=== PATIENT | female | born 1955 | race Caucasian/White ===

== ENCOUNTER 2018-12-07 10:15 | Inpatient (IN) ==
[2018-12-07] MEDS ORDERED: guaiFENesin/DM ER 600-30 MG TABLET PO PRN (13:18)
[2018-12-07 13:45] LABS: Basophils % 0.5 % (0.0-0.8); Eosinophils # 0.2 10*3/uL (0.0-0.87); Eosinophils % 2.4 % (0.00-10.9); Hematocrit 37.2 VOL% (35.7-47.0); Hemoglobin 11.7 GM/DL (12.0-16.0); Immature Granulocytes % 0.5 %; Immature Granulocytes Absolute 0.04 #; Lymphocytes # 2.5 10*3/uL (1.4-4.0); Lymphocytes % 28.2 % (21.3-54.2); Mean Corpuscular HGB Conc 31.5 GM/DL (32-36); Mean Corpuscular Volume 95.4 FL (87-102); Mean Platelet Volume 9.9 FL (9.6-12.0); Monocytes % 8.4 % (1.7-12.7); Platelet Count 365 T/CUMM (130-400); Red Cell Distribution Width 13.7 % (9.3-17.3); White Blood Count 8.7 T/CUMM (4-12)
[2018-12-07 14:13] LABS: Thyroid Stimulating Hormone 2.25 uIU/ml (0.358-3.74)
[2018-12-07] MEDS: ALBUTEROL/IPRATROPIUM 3 ML NEB RESP TX SCH ×3 (14:32→22:40)
[2018-12-07] MEDS: ENOXAPARIN 40 MG/0.4 ML SYRINGE SUBCUT SCH (15:39)
[2018-12-07] MEDS: methylPREDNISolone SOD SUC 40 MG/1 ML VIAL IV SCH ×2 (15:39→21:09)
[2018-12-07] MEDS: cefTRIAXone 1,000 MG in SYRINGE 1 EACH IV SCH (15:40)
[2018-12-07] MEDS: ACETAMINOPHEN 325 MG TABLET PO PRN (18:35)
[2018-12-07 19:59] LABS: Apearance,Urine CLEAR (Clear); Bilirubin,Urine Negative (Negative); Blood, Urine Negative (Negative); Glucose,Urine (UA) Negative (Negative); Ketones,Urine Negative (Negative); Mucus,Urine Occasional /LPF (Occasional); Nitrite,Urine Negative (Negative); Protein,Urine Negative; RBC,Urine 2 /HPF (0-4); Urine Color Yellow (Yellow); Urine Specific Gravity 1.013 (1.001-1.035); Urine Urobilinogen < 2.0 EU/DL (0.2-1.0); WBC,Urine 1 /HPF (0-6)
[2018-12-08] MEDS ORDERED: BENZONATATE 100 MG CAPSULE PO PRN (00:29)
[2018-12-08] MEDS: methylPREDNISolone SOD SUC 40 MG/1 ML VIAL IV SCH ×4 (02:22→20:15)
[2018-12-08] MEDS: ALBUTEROL/IPRATROPIUM 3 ML NEB RESP TX SCH ×4 (02:50→20:00)
[2018-12-08 06:36] LABS: Basophils % 0.1 % (0.0-0.8); Hematocrit 34.4 VOL% (35.7-47.0); Hemoglobin 10.9 GM/DL (12.0-16.0); Immature Granulocytes % 0.6 %; Immature Granulocytes Absolute 0.06 #; Mean Corpuscular HGB Conc 31.7 GM/DL (32-36); Mean Corpuscular Volume 93.2 FL (87-102); Mean Platelet Volume 10.8 FL (9.6-12.0); Monocytes % 2.1 % (1.7-12.7); Neutrophils % 87.2 % (38.7-73.9); Platelet Count 361 T/CUMM (130-400); Red Blood Count 3.69 MC/CUMM (3.8-5.5); Red Cell Distribution Width 13.7 % (9.3-17.3); White Blood Count 10.2 T/CUMM (4-12)
[2018-12-08 06:58] LABS: Calcium 9.2 MG/DL (8.5-10.1); Osmolality,Calculated 289.1 MOS/KG (273-304); Risk Ratio 3.61; VLDL CHOLESTEROL 17.2 MG/DL
[2018-12-08] MEDS: PANTOPRAZOLE 40 MG TABLET PO SCH (09:33)
[2018-12-08] MEDS: guaiFENesin/CODEINE 5 ML LIQUID PO PRN (09:34)
[2018-12-08] MEDS ORDERED: ALBUTEROL/IPRATROPIUM 3 ML NEB RESP TX PRN (09:42)
[2018-12-08] MEDS ORDERED: AMINOPHYLLINE 250 MG in SODIUM CHLORIDE 0.9% 100 ML IV ONE (09:44)
[2018-12-08] MEDS: DORNASE ALFA 2.5 MG/2.5 ML VIAL RESP TX SCH ×2 (11:00→20:00)
[2018-12-08] MEDS: BENZONATATE 100 MG CAPSULE PO SCH ×3 (11:03→21:25)
[2018-12-08] MEDS: MONTELUKAST 10 MG TABLET PO SCH ×2 (11:03→21:27)
[2018-12-08] MEDS ORDERED: CYCLOBENZAPRINE 10 MG TABLET PO PRN (13:24)
[2018-12-08] MEDS ORDERED: traMADol 50 MG TABLET PO PRN (13:24)
[2018-12-08] MEDS ORDERED: CELECOXIB 200 MG CAPSULE PO PRN (13:24)
[2018-12-08] MEDS: diphenhydrAMINE CAP 50 MG CAPSULE PO PRN ×2 (14:39→20:15)
[2018-12-08] MEDS: ENOXAPARIN 40 MG/0.4 ML SYRINGE SUBCUT SCH (14:39)
[2018-12-08] MEDS: cefTRIAXone 1,000 MG in SYRINGE 1 EACH IV SCH (14:39)
[2018-12-08] MEDS: GABAPENTIN 600 MG TABLET PO SCH ×2 (14:39→21:26)
[2018-12-08] MEDS: DICLOFENAC 1% GEL 100 GM TUBE TOP SCH ×2 (16:24→21:27)
[2018-12-08] MEDS: AMINOPHYLLINE 500 MG in SODIUM CHLORIDE 0.9% 480 ML IV SCH (16:24)
[2018-12-08] MEDS: MUPIROCIN 2% OINT 22 GM TUBE TOP PRN (20:18)
[2018-12-08] MEDS: traZODone 50 MG TABLET PO PRN (21:27)
[2018-12-08] MEDS: CALCIUM (CARBONATE)/VITAMIN D 500 MG-200 UNIT TABLET PO SCH (21:27)
[2018-12-08] MEDS: rOPINIRole 0.25 MG TABLET PO SCH (21:27)
[2018-12-08] MEDS: GLUCOSAMINE 500 MG TABLET PO SCH (21:30)
[2018-12-08] MEDS: DULoxetine 30 MG CAPSULE PO SCH (21:30)
[2018-12-09] MEDS: ALBUTEROL/IPRATROPIUM 3 ML NEB RESP TX SCH ×4 (01:47→19:20)
[2018-12-09] MEDS: methylPREDNISolone SOD SUC 40 MG/1 ML VIAL IV SCH ×4 (02:19→20:29)
[2018-12-09 04:53] LABS: Basophils % 0.1 % (0.0-0.8); Hemoglobin 10.7 GM/DL (12.0-16.0); Immature Granulocytes % 0.8 %; Immature Granulocytes Absolute 0.16 #; Lymphocytes # 1.1 10*3/uL (1.4-4.0); Lymphocytes % 5.9 % (21.3-54.2); Mean Corpuscular HGB Conc 31.5 GM/DL (32-36); Mean Corpuscular Volume 94.4 FL (87-102); Mean Platelet Volume 10.6 FL (9.6-12.0); Monocytes % 3.7 % (1.7-12.7); Neutrophils % 89.5 % (38.7-73.9); Platelet Count 361 T/CUMM (130-400); Red Cell Distribution Width 14.1 % (9.3-17.3); White Blood Count 19.3 T/CUMM (4-12)
[2018-12-09 05:19] LABS: Calcium 9.2 MG/DL (8.5-10.1); Osmolality,Calculated 294.1 MOS/KG (273-304)
[2018-12-09] MEDS: DORNASE ALFA 2.5 MG/2.5 ML VIAL RESP TX SCH ×2 (07:10→20:20)
[2018-12-09] MEDS: DULoxetine 30 MG CAPSULE PO SCH ×2 (09:02→20:29)
[2018-12-09] MEDS: EZETIMIBE 10 MG TABLET PO SCH (09:03)
[2018-12-09] MEDS: GABAPENTIN 600 MG TABLET PO SCH ×3 (09:03→20:30)
[2018-12-09] MEDS: MONTELUKAST 10 MG TABLET PO SCH ×2 (09:03→20:30)
[2018-12-09] MEDS: BENZONATATE 100 MG CAPSULE PO SCH ×3 (09:03→20:29)
[2018-12-09] MEDS: OXYBUTYNIN XL 10 MG TABLET PO SCH (09:03)
[2018-12-09] MEDS: CALCIUM (CARBONATE)/VITAMIN D 500 MG-200 UNIT TABLET PO SCH ×2 (09:03→20:30)
[2018-12-09] MEDS: GLUCOSAMINE 500 MG TABLET PO SCH ×2 (09:03→20:29)
[2018-12-09] MEDS: CETIRIZINE 10 MG TABLET PO SCH (09:03)
[2018-12-09] MEDS: FENOFIBRATE 145 MG TABLET PO SCH (09:03)
[2018-12-09] MEDS: MULTIVITAMIN (CENTRUM) TABLET PO SCH (09:03)
[2018-12-09] MEDS: buPROPion SR 150 MG TABLET PO SCH (09:03)
[2018-12-09] MEDS: PANTOPRAZOLE 40 MG TABLET PO SCH (09:04)
[2018-12-09] MEDS ORDERED: LEVOFLOXACIN INJ 500 MG in PREMIX 1 EACH IV SCH (10:00)
[2018-12-09] MEDS: COENZYME Q10 100 MG CAPSULE PO SCH (10:41)
[2018-12-09] MEDS: LACTOBACILLUS ACIDOPHILUS/BULGARICUS CAPLET PO SCH (10:41)
[2018-12-09] MEDS: DICLOFENAC 1% GEL 100 GM TUBE TOP SCH ×4 (10:41→21:11)
[2018-12-09] MEDS: diphenhydrAMINE CAP 50 MG CAPSULE PO PRN (11:12)
[2018-12-09] MEDS: guaiFENesin/CODEINE 5 ML LIQUID PO PRN ×3 (13:41→23:41)
[2018-12-09] MEDS: ENOXAPARIN 40 MG/0.4 ML SYRINGE SUBCUT SCH (13:41)
[2018-12-09] MEDS: MUPIROCIN 2% OINT 22 GM TUBE TOP PRN (13:41)
[2018-12-09] MEDS: MEROPENEM 1,000 MG in SYRINGE 1 EACH IV SCH ×2 (13:42→21:37)
[2018-12-09] MEDS: AMINOPHYLLINE 500 MG in SODIUM CHLORIDE 0.9% 480 ML IV SCH (15:36)
[2018-12-09] MEDS: rOPINIRole 0.25 MG TABLET PO SCH (20:30)
[2018-12-09] MEDS: traZODone 50 MG TABLET PO PRN (21:11)
[2018-12-10] MEDS: ALBUTEROL/IPRATROPIUM 3 ML NEB RESP TX SCH ×4 (00:30→20:08)
[2018-12-10] MEDS: methylPREDNISolone SOD SUC 40 MG/1 ML VIAL IV SCH ×3 (02:17→20:29)
[2018-12-10] MEDS: MEROPENEM 1,000 MG in SYRINGE 1 EACH IV SCH ×3 (05:38→21:46)
[2018-12-10 05:46] LABS: Basophils % 0.2 % (0.0-0.8); Hematocrit 34.6 VOL% (35.7-47.0); Immature Granulocytes % 1.3 %; Immature Granulocytes Absolute 0.24 #; Lymphocytes # 1.4 10*3/uL (1.4-4.0); Lymphocytes % 7.3 % (21.3-54.2); Mean Corpuscular HGB Conc 31.8 GM/DL (32-36); Mean Corpuscular Volume 93.8 FL (87-102); Mean Platelet Volume 10.4 FL (9.6-12.0); Monocytes % 4.4 % (1.7-12.7); Neutrophils % 86.8 % (38.7-73.9); Platelet Count 375 T/CUMM (130-400); Red Blood Count 3.69 MC/CUMM (3.8-5.5); White Blood Count 19.1 T/CUMM (4-12)
[2018-12-10] MEDS: diphenhydrAMINE CAP 50 MG CAPSULE PO PRN ×3 (05:56→20:31)
[2018-12-10 06:10] LABS: Calcium 10.1 MG/DL (8.5-10.1); Osmolality,Calculated 290.3 MOS/KG (273-304)
[2018-12-10] MEDS: DORNASE ALFA 2.5 MG/2.5 ML VIAL RESP TX SCH ×2 (08:26→20:08)
[2018-12-10] MEDS: OXYBUTYNIN XL 10 MG TABLET PO SCH (08:41)
[2018-12-10] MEDS: CALCIUM (CARBONATE)/VITAMIN D 500 MG-200 UNIT TABLET PO SCH ×2 (08:41→20:31)
[2018-12-10] MEDS: GLUCOSAMINE 500 MG TABLET PO SCH ×2 (08:41→20:31)
[2018-12-10] MEDS: MULTIVITAMIN (CENTRUM) TABLET PO SCH (08:41)
[2018-12-10] MEDS: GABAPENTIN 600 MG TABLET PO SCH ×3 (08:41→20:29)
[2018-12-10] MEDS: DULoxetine 30 MG CAPSULE PO SCH ×2 (08:41→20:30)
[2018-12-10] MEDS: MONTELUKAST 10 MG TABLET PO SCH ×2 (08:41→20:30)
[2018-12-10] MEDS: LACTOBACILLUS ACIDOPHILUS/BULGARICUS CAPLET PO SCH (08:42)
[2018-12-10] MEDS: CETIRIZINE 10 MG TABLET PO SCH (08:42)
[2018-12-10] MEDS: BENZONATATE 100 MG CAPSULE PO SCH ×3 (08:42→20:29)
[2018-12-10] MEDS: PANTOPRAZOLE 40 MG TABLET PO SCH (08:42)
[2018-12-10] MEDS: EZETIMIBE 10 MG TABLET PO SCH (08:42)
[2018-12-10] MEDS: buPROPion SR 150 MG TABLET PO SCH (08:42)
[2018-12-10] MEDS: FENOFIBRATE 145 MG TABLET PO SCH (08:42)
[2018-12-10] MEDS: COENZYME Q10 100 MG CAPSULE PO SCH (08:42)
[2018-12-10] MEDS: DICLOFENAC 1% GEL 100 GM TUBE TOP SCH ×4 (13:10→20:33)
[2018-12-10] MEDS: ENOXAPARIN 40 MG/0.4 ML SYRINGE SUBCUT SCH (14:51)
[2018-12-10] MEDS ORDERED: PHENOL 1.4% THROAT SPRAY 177 ML BOTTLE PO PRN (14:58)
[2018-12-10] MEDS: AMINOPHYLLINE 500 MG in SODIUM CHLORIDE 0.9% 480 ML IV SCH (17:45)
[2018-12-10] MEDS: guaiFENesin/CODEINE 5 ML LIQUID PO PRN (19:34)
[2018-12-10] MEDS: traZODone 50 MG TABLET PO PRN (20:30)
[2018-12-10] MEDS: rOPINIRole 0.25 MG TABLET PO SCH (20:31)
[2018-12-10] MEDS: ACETAMINOPHEN 325 MG TABLET PO PRN (21:46)
[2018-12-11] MEDS: ALBUTEROL/IPRATROPIUM 3 ML NEB RESP TX SCH ×4 (00:26→19:48)
[2018-12-11] MEDS: diphenhydrAMINE CAP 50 MG CAPSULE PO PRN ×3 (04:55→20:48)
[2018-12-11 05:00] LABS: Basophils % 0.2 % (0.0-0.8); Hematocrit 34.6 VOL% (35.7-47.0); Hemoglobin 11.2 GM/DL (12.0-16.0); Immature Granulocytes % 1.8 %; Immature Granulocytes Absolute 0.32 #; Lymphocytes # 2.4 10*3/uL (1.4-4.0); Lymphocytes % 13.6 % (21.3-54.2); Mean Corpuscular HGB Conc 32.4 GM/DL (32-36); Mean Corpuscular Volume 92.8 FL (87-102); Mean Platelet Volume 10.1 FL (9.6-12.0); Monocytes % 7.2 % (1.7-12.7); Neutrophils % 77.2 % (38.7-73.9); Platelet Count 359 T/CUMM (130-400); Red Blood Count 3.73 MC/CUMM (3.8-5.5); Red Cell Distribution Width 13.9 % (9.3-17.3); White Blood Count 17.8 T/CUMM (4-12)
[2018-12-11 05:27] LABS: Calcium 9.2 MG/DL (8.5-10.1)
[2018-12-11] MEDS: MEROPENEM 1,000 MG in SYRINGE 1 EACH IV SCH ×3 (06:15→21:53)
[2018-12-11] MEDS: DORNASE ALFA 2.5 MG/2.5 ML VIAL RESP TX SCH ×2 (08:06→19:48)
[2018-12-11] MEDS ORDERED: AMOXICILLIN/CLAV 875 MG TABLET PO SCH (09:00)
[2018-12-11] MEDS: FENOFIBRATE 145 MG TABLET PO SCH (09:36)
[2018-12-11] MEDS: OXYBUTYNIN XL 10 MG TABLET PO SCH (09:36)
[2018-12-11] MEDS: MULTIVITAMIN (CENTRUM) TABLET PO SCH (09:37)
[2018-12-11] MEDS: buPROPion SR 150 MG TABLET PO SCH (09:37)
[2018-12-11] MEDS: CALCIUM (CARBONATE)/VITAMIN D 500 MG-200 UNIT TABLET PO SCH ×2 (09:37→20:48)
[2018-12-11] MEDS: CETIRIZINE 10 MG TABLET PO SCH (09:37)
[2018-12-11] MEDS: DULoxetine 30 MG CAPSULE PO SCH ×2 (09:37→20:48)
[2018-12-11] MEDS: LACTOBACILLUS ACIDOPHILUS/BULGARICUS CAPLET PO SCH (09:38)
[2018-12-11] MEDS: BENZONATATE 100 MG CAPSULE PO SCH ×3 (09:38→20:53)
[2018-12-11] MEDS: EZETIMIBE 10 MG TABLET PO SCH (09:38)
[2018-12-11] MEDS: GABAPENTIN 600 MG TABLET PO SCH ×3 (09:38→20:48)
[2018-12-11] MEDS: GLUCOSAMINE 500 MG TABLET PO SCH ×2 (09:38→20:50)
[2018-12-11] MEDS: PANTOPRAZOLE 40 MG TABLET PO SCH (09:38)
[2018-12-11] MEDS: MONTELUKAST 10 MG TABLET PO SCH ×2 (09:38→20:48)
[2018-12-11] MEDS: COENZYME Q10 100 MG CAPSULE PO SCH (09:39)
[2018-12-11] MEDS: DICLOFENAC 1% GEL 100 GM TUBE TOP SCH ×4 (09:40→20:53)
[2018-12-11] MEDS: methylPREDNISolone SOD SUC 40 MG/1 ML VIAL IV SCH ×2 (09:45→20:49)
[2018-12-11] MEDS: guaiFENesin/CODEINE 5 ML LIQUID PO PRN ×2 (14:37→20:48)
[2018-12-11] MEDS: ENOXAPARIN 40 MG/0.4 ML SYRINGE SUBCUT SCH (14:37)
[2018-12-11] MEDS: AMINOPHYLLINE 500 MG in SODIUM CHLORIDE 0.9% 480 ML IV SCH (15:15)
[2018-12-11] MEDS: rOPINIRole 0.25 MG TABLET PO SCH (20:48)
[2018-12-11] MEDS: traZODone 50 MG TABLET PO PRN (20:48)
[2018-12-11] MEDS: NYSTATIN 500,000 UNIT/5 ML UDCUP SWISH/SWAL SCH (21:48)
[2018-12-12] MEDS: ALBUTEROL/IPRATROPIUM 3 ML NEB RESP TX SCH ×4 (00:30→19:22)
[2018-12-12] MEDS: diphenhydrAMINE CAP 50 MG CAPSULE PO PRN ×3 (04:37→21:53)
[2018-12-12 05:21] LABS: Basophils % 0.2 % (0.0-0.8); Hematocrit 34.8 VOL% (35.7-47.0); Immature Granulocytes % 1.7 %; Immature Granulocytes Absolute 0.27 #; Lymphocytes # 2.4 10*3/uL (1.4-4.0); Lymphocytes % 15.1 % (21.3-54.2); Mean Corpuscular HGB Conc 31.6 GM/DL (32-36); Mean Corpuscular Volume 93.8 FL (87-102); Monocytes % 5.5 % (1.7-12.7); Neutrophils % 77.5 % (38.7-73.9); Platelet Count 363 T/CUMM (130-400); Red Blood Count 3.71 MC/CUMM (3.8-5.5); Red Cell Distribution Width 13.8 % (9.3-17.3); White Blood Count 16.1 T/CUMM (4-12)
[2018-12-12] MEDS: MEROPENEM 1,000 MG in SYRINGE 1 EACH IV SCH ×3 (05:21→23:03)
[2018-12-12 05:40] LABS: Calcium 9.7 MG/DL (8.5-10.1); Osmolality,Calculated 292.3 MOS/KG (273-304)
[2018-12-12] MEDS: DORNASE ALFA 2.5 MG/2.5 ML VIAL RESP TX SCH ×2 (07:50→19:28)
[2018-12-12] MEDS: OXYBUTYNIN XL 10 MG TABLET PO SCH (10:08)
[2018-12-12] MEDS: DULoxetine 30 MG CAPSULE PO SCH ×2 (10:08→21:52)
[2018-12-12] MEDS: GLUCOSAMINE 500 MG TABLET PO SCH ×2 (10:08→21:53)
[2018-12-12] MEDS: methylPREDNISolone SOD SUC 40 MG/1 ML VIAL IV SCH ×2 (10:08→21:53)
[2018-12-12] MEDS: LACTOBACILLUS ACIDOPHILUS/BULGARICUS CAPLET PO SCH (10:08)
[2018-12-12] MEDS: PANTOPRAZOLE 40 MG TABLET PO SCH (10:09)
[2018-12-12] MEDS: CALCIUM (CARBONATE)/VITAMIN D 500 MG-200 UNIT TABLET PO SCH ×2 (10:09→21:52)
[2018-12-12] MEDS: buPROPion SR 150 MG TABLET PO SCH (10:09)
[2018-12-12] MEDS: MONTELUKAST 10 MG TABLET PO SCH ×2 (10:09→21:52)
[2018-12-12] MEDS: EZETIMIBE 10 MG TABLET PO SCH (10:09)
[2018-12-12] MEDS: FENOFIBRATE 145 MG TABLET PO SCH (10:09)
[2018-12-12] MEDS: BENZONATATE 100 MG CAPSULE PO SCH ×3 (10:10→21:53)
[2018-12-12] MEDS: CETIRIZINE 10 MG TABLET PO SCH (10:10)
[2018-12-12] MEDS: NYSTATIN 500,000 UNIT/5 ML UDCUP SWISH/SWAL SCH ×2 (10:10→21:54)
[2018-12-12] MEDS: MULTIVITAMIN (CENTRUM) TABLET PO SCH (10:10)
[2018-12-12] MEDS: COENZYME Q10 100 MG CAPSULE PO SCH (10:10)
[2018-12-12] MEDS: DICLOFENAC 1% GEL 100 GM TUBE TOP SCH ×4 (10:11→23:09)
[2018-12-12] MEDS: GABAPENTIN 600 MG TABLET PO SCH ×3 (10:13→21:52)
[2018-12-12] MEDS: ENOXAPARIN 40 MG/0.4 ML SYRINGE SUBCUT SCH (13:06)
[2018-12-12] MEDS: AMINOPHYLLINE 500 MG in SODIUM CHLORIDE 0.9% 480 ML IV SCH (15:17)
[2018-12-12] MEDS: guaiFENesin/CODEINE 5 ML LIQUID PO PRN (17:10)
[2018-12-12] MEDS: rOPINIRole 0.25 MG TABLET PO SCH (21:52)
[2018-12-12] MEDS: DOCUSATE SODIUM 100 MG CAPSULE PO PRN (21:52)
[2018-12-12] MEDS: traZODone 50 MG TABLET PO PRN (21:53)
[2018-12-13] MEDS: ALBUTEROL/IPRATROPIUM 3 ML NEB RESP TX SCH ×4 (00:35→20:45)
[2018-12-13 05:27] LABS: Basophils % 0.2 % (0.0-0.8); Eosinophils % 0.1 % (0.00-10.9); Hemoglobin 10.8 GM/DL (12.0-16.0); Immature Granulocytes % 1.7 %; Immature Granulocytes Absolute 0.27 #; Lymphocytes # 2.5 10*3/uL (1.4-4.0); Lymphocytes % 16.1 % (21.3-54.2); Mean Corpuscular HGB Conc 31.8 GM/DL (32-36); Mean Corpuscular Volume 93.9 FL (87-102); Mean Platelet Volume 10.1 FL (9.6-12.0); Monocytes % 6.3 % (1.7-12.7); Neutrophils % 75.6 % (38.7-73.9); Platelet Count 359 T/CUMM (130-400); Red Blood Count 3.62 MC/CUMM (3.8-5.5); Red Cell Distribution Width 13.8 % (9.3-17.3); White Blood Count 15.5 T/CUMM (4-12)
[2018-12-13 05:39] LABS: PT Patient Result 11.2 SECS (9.6-12.2); Partial Thromboplastin Time 21.7 SECS (20.8-36.0)
[2018-12-13 05:50] LABS: Calcium 9.4 MG/DL (8.5-10.1); Osmolality,Calculated 293.1 MOS/KG (273-304)
[2018-12-13] MEDS: MEROPENEM 1,000 MG in SYRINGE 1 EACH IV SCH ×3 (05:53→22:19)
[2018-12-13] MEDS ORDERED: BENZONATATE 100 MG CAPSULE PO ONE (08:00)
[2018-12-13] MEDS: DORNASE ALFA 2.5 MG/2.5 ML VIAL RESP TX SCH ×2 (08:00→20:55)
[2018-12-13] MEDS ORDERED: diphenhydrAMINE 50 MG/1 ML VIAL IM ONE (08:00)
[2018-12-13] MEDS ORDERED: MEPERIDINE 50 MG/1 ML VIAL IM ONE (08:00)
[2018-12-13] MEDS ORDERED: LIDOCAINE 2% VISCOUS 100 ML BOTTLE SWISH/SPIT ONE (08:30)
[2018-12-13] MEDS ORDERED: LIDOCAINE 2% 20 ML VIAL RESP TX ONE (08:30)
[2018-12-13] MEDS ORDERED: LIDOCAINE 1% 20 ML VIAL MISC INJ ONE (08:30)
[2018-12-13] MEDS ORDERED: MIDAZOLAM 2 MG/2 ML VIAL IV ONE (08:45)
[2018-12-13] MEDS ORDERED: MIDAZOLAM 2 MG/2 ML VIAL ONE (09:46)
[2018-12-13] MEDS: NYSTATIN 500,000 UNIT/5 ML UDCUP SWISH/SWAL SCH ×2 (11:19→21:29)
[2018-12-13] MEDS: DULoxetine 30 MG CAPSULE PO SCH ×2 (11:20→21:27)
[2018-12-13] MEDS: MULTIVITAMIN (CENTRUM) TABLET PO SCH (11:20)
[2018-12-13] MEDS: GLUCOSAMINE 500 MG TABLET PO SCH ×2 (11:20→21:28)
[2018-12-13] MEDS: CETIRIZINE 10 MG TABLET PO SCH (11:20)
[2018-12-13] MEDS: EZETIMIBE 10 MG TABLET PO SCH (11:20)
[2018-12-13] MEDS: LACTOBACILLUS ACIDOPHILUS/BULGARICUS CAPLET PO SCH (11:20)
[2018-12-13] MEDS: OXYBUTYNIN XL 10 MG TABLET PO SCH (11:20)
[2018-12-13] MEDS: MONTELUKAST 10 MG TABLET PO SCH ×2 (11:20→21:27)
[2018-12-13] MEDS: COENZYME Q10 100 MG CAPSULE PO SCH (11:20)
[2018-12-13] MEDS: GABAPENTIN 600 MG TABLET PO SCH ×3 (11:20→21:29)
[2018-12-13] MEDS: BENZONATATE 100 MG CAPSULE PO SCH ×3 (11:21→21:27)
[2018-12-13] MEDS: CALCIUM (CARBONATE)/VITAMIN D 500 MG-200 UNIT TABLET PO SCH ×2 (11:21→21:28)
[2018-12-13] MEDS: buPROPion SR 150 MG TABLET PO SCH (11:21)
[2018-12-13] MEDS: FENOFIBRATE 145 MG TABLET PO SCH (11:21)
[2018-12-13] MEDS: ACETAMINOPHEN 325 MG TABLET PO PRN (11:23)
[2018-12-13] MEDS: DICLOFENAC 1% GEL 100 GM TUBE TOP SCH ×4 (11:23→21:28)
[2018-12-13] MEDS: PANTOPRAZOLE 40 MG TABLET PO SCH (11:23)
[2018-12-13] MEDS: methylPREDNISolone SOD SUC 40 MG/1 ML VIAL IV SCH (11:30)
[2018-12-13] MEDS: diphenhydrAMINE CAP 50 MG CAPSULE PO PRN ×2 (13:51→21:27)
[2018-12-13] MEDS: ENOXAPARIN 40 MG/0.4 ML SYRINGE SUBCUT SCH (15:35)
[2018-12-13] MEDS: AMINOPHYLLINE 500 MG in SODIUM CHLORIDE 0.9% 480 ML IV SCH (16:05)
[2018-12-13] MEDS: THEOPHYLLINE ER 300 MG TABLET PO SCH (16:42)
[2018-12-13] MEDS: guaiFENesin/CODEINE 5 ML LIQUID PO PRN (21:26)
[2018-12-13] MEDS: traZODone 50 MG TABLET PO PRN (21:26)
[2018-12-13] MEDS: rOPINIRole 0.25 MG TABLET PO SCH (21:28)
[2018-12-13] MEDS: DOCUSATE SODIUM 100 MG CAPSULE PO PRN (21:28)
[2018-12-14] MEDS: ALBUTEROL/IPRATROPIUM 3 ML NEB RESP TX SCH ×4 (01:04→19:28)
[2018-12-14 05:55] LABS: Basophils % 0.1 % (0.0-0.8); Eosinophils # 0.2 10*3/uL (0.0-0.87); Eosinophils % 1.1 % (0.00-10.9); Hematocrit 33.5 VOL% (35.7-47.0); Hemoglobin 10.6 GM/DL (12.0-16.0); Immature Granulocytes % 1.5 %; Immature Granulocytes Absolute 0.22 #; Lymphocytes # 5.3 10*3/uL (1.4-4.0); Lymphocytes % 35.8 % (21.3-54.2); Mean Corpuscular HGB Conc 31.6 GM/DL (32-36); Mean Corpuscular Volume 94.9 FL (87-102); Mean Platelet Volume 10.3 FL (9.6-12.0); Monocytes % 7.5 % (1.7-12.7); Platelet Count 338 T/CUMM (130-400); Red Blood Count 3.53 MC/CUMM (3.8-5.5); Red Cell Distribution Width 14.4 % (9.3-17.3); White Blood Count 14.8 T/CUMM (4-12)
[2018-12-14 06:08] LABS: Calcium 9.3 MG/DL (8.5-10.1); Osmolality,Calculated 295.7 MOS/KG (273-304)
[2018-12-14] MEDS: MEROPENEM 1,000 MG in SYRINGE 1 EACH IV SCH ×3 (06:20→21:52)
[2018-12-14] MEDS: DORNASE ALFA 2.5 MG/2.5 ML VIAL RESP TX SCH ×2 (07:38→19:28)
[2018-12-14] MEDS ORDERED: POTASSIUM CHLORIDE 20 MEQ TABLET PO ONE (08:06)
[2018-12-14] MEDS ORDERED: AZTREONAM 2,000 MG in SYRINGE 1 EACH IV ONE (08:30)
[2018-12-14] MEDS: NYSTATIN 500,000 UNIT/5 ML UDCUP SWISH/SWAL SCH ×2 (10:09→21:52)
[2018-12-14] MEDS: GLUCOSAMINE 500 MG TABLET PO SCH ×2 (10:10→21:52)
[2018-12-14] MEDS: BENZONATATE 100 MG CAPSULE PO SCH ×3 (10:10→21:52)
[2018-12-14] MEDS: COENZYME Q10 100 MG CAPSULE PO SCH (10:10)
[2018-12-14] MEDS: GABAPENTIN 600 MG TABLET PO SCH ×3 (10:11→21:51)
[2018-12-14] MEDS: LACTOBACILLUS ACIDOPHILUS/BULGARICUS CAPLET PO SCH (10:11)
[2018-12-14] MEDS: MULTIVITAMIN (CENTRUM) TABLET PO SCH (10:11)
[2018-12-14] MEDS: FENOFIBRATE 145 MG TABLET PO SCH (10:11)
[2018-12-14] MEDS: EZETIMIBE 10 MG TABLET PO SCH (10:11)
[2018-12-14] MEDS: CALCIUM (CARBONATE)/VITAMIN D 500 MG-200 UNIT TABLET PO SCH ×2 (10:11→21:50)
[2018-12-14] MEDS: MONTELUKAST 10 MG TABLET PO SCH ×2 (10:11→21:51)
[2018-12-14] MEDS: DICLOFENAC 1% GEL 100 GM TUBE TOP SCH ×4 (10:12→22:06)
[2018-12-14] MEDS: THEOPHYLLINE ER 300 MG TABLET PO SCH ×2 (10:12→17:09)
[2018-12-14] MEDS: PANTOPRAZOLE 40 MG TABLET PO SCH (10:12)
[2018-12-14] MEDS: OXYBUTYNIN XL 10 MG TABLET PO SCH (10:12)
[2018-12-14] MEDS: DULoxetine 30 MG CAPSULE PO SCH ×2 (10:12→21:51)
[2018-12-14] MEDS: buPROPion SR 150 MG TABLET PO SCH (10:12)
[2018-12-14] MEDS: CETIRIZINE 10 MG TABLET PO SCH (10:12)
[2018-12-14] MEDS: methylPREDNISolone SOD SUC 40 MG/1 ML VIAL IV SCH ×2 (14:09→21:52)
[2018-12-14] MEDS: diphenhydrAMINE CAP 50 MG CAPSULE PO PRN (14:10)
[2018-12-14] MEDS: ENOXAPARIN 40 MG/0.4 ML SYRINGE SUBCUT SCH (14:10)
[2018-12-14] MEDS: ACETAMINOPHEN 325 MG TABLET PO PRN (14:10)
[2018-12-14] MEDS: CLOTRIMAZOLE 1% CREAM 15 GM TUBE TOP SCH ×2 (14:10→22:05)
[2018-12-14] MEDS: rOPINIRole 0.25 MG TABLET PO SCH (21:51)
[2018-12-14] MEDS: traZODone 50 MG TABLET PO PRN (22:00)
[2018-12-15] MEDS: ALBUTEROL/IPRATROPIUM 3 ML NEB RESP TX SCH ×4 (00:08→20:05)
[2018-12-15] MEDS: MEROPENEM 1,000 MG in SYRINGE 1 EACH IV SCH ×3 (05:20→21:53)
[2018-12-15 06:23] LABS: Basophils % 0.2 % (0.0-0.8); Hematocrit 34.6 VOL% (35.7-47.0); Hemoglobin 10.9 GM/DL (12.0-16.0); Immature Granulocytes % 1.4 %; Immature Granulocytes Absolute 0.23 #; Lymphocytes # 1.6 10*3/uL (1.4-4.0); Lymphocytes % 9.9 % (21.3-54.2); Mean Corpuscular HGB Conc 31.5 GM/DL (32-36); Mean Corpuscular Volume 95.6 FL (87-102); Mean Platelet Volume 9.9 FL (9.6-12.0); Neutrophils % 84.5 % (38.7-73.9); Platelet Count 349 T/CUMM (130-400); Red Blood Count 3.62 MC/CUMM (3.8-5.5); Red Cell Distribution Width 14.1 % (9.3-17.3)
[2018-12-15 06:43] LABS: Calcium 9.2 MG/DL (8.5-10.1); Osmolality,Calculated 292.1 MOS/KG (273-304)
[2018-12-15] MEDS: DORNASE ALFA 2.5 MG/2.5 ML VIAL RESP TX SCH ×2 (07:34→20:10)
[2018-12-15] MEDS: BENZONATATE 100 MG CAPSULE PO SCH ×3 (09:26→21:52)
[2018-12-15] MEDS: NYSTATIN 500,000 UNIT/5 ML UDCUP SWISH/SWAL SCH ×2 (09:26→21:53)
[2018-12-15] MEDS: THEOPHYLLINE ER 300 MG TABLET PO SCH ×2 (09:27→16:44)
[2018-12-15] MEDS: buPROPion SR 150 MG TABLET PO SCH (09:27)
[2018-12-15] MEDS: CALCIUM (CARBONATE)/VITAMIN D 500 MG-200 UNIT TABLET PO SCH ×2 (09:27→21:52)
[2018-12-15] MEDS: MULTIVITAMIN (CENTRUM) TABLET PO SCH (09:27)
[2018-12-15] MEDS: MONTELUKAST 10 MG TABLET PO SCH ×2 (09:28→21:52)
[2018-12-15] MEDS: GABAPENTIN 600 MG TABLET PO SCH ×3 (09:28→21:53)
[2018-12-15] MEDS: CETIRIZINE 10 MG TABLET PO SCH (09:28)
[2018-12-15] MEDS: LACTOBACILLUS ACIDOPHILUS/BULGARICUS CAPLET PO SCH (09:28)
[2018-12-15] MEDS: EZETIMIBE 10 MG TABLET PO SCH (09:28)
[2018-12-15] MEDS: FENOFIBRATE 145 MG TABLET PO SCH (09:29)
[2018-12-15] MEDS: GLUCOSAMINE 500 MG TABLET PO SCH ×2 (09:29→21:53)
[2018-12-15] MEDS: DULoxetine 30 MG CAPSULE PO SCH ×2 (09:29→21:52)
[2018-12-15] MEDS: OXYBUTYNIN XL 10 MG TABLET PO SCH (09:29)
[2018-12-15] MEDS: PANTOPRAZOLE 40 MG TABLET PO SCH (09:29)
[2018-12-15] MEDS: methylPREDNISolone SOD SUC 40 MG/1 ML VIAL IV SCH ×2 (09:31→21:53)
[2018-12-15] MEDS: CLOTRIMAZOLE 1% CREAM 15 GM TUBE TOP SCH ×2 (09:32→21:54)
[2018-12-15] MEDS: COENZYME Q10 100 MG CAPSULE PO SCH (09:32)
[2018-12-15] MEDS: DICLOFENAC 1% GEL 100 GM TUBE TOP SCH ×4 (09:32→22:05)
[2018-12-15] MEDS: FLUCONAZOLE 100 MG TABLET PO SCH (11:35)
[2018-12-15] MEDS: ENOXAPARIN 40 MG/0.4 ML SYRINGE SUBCUT SCH (13:43)
[2018-12-15] MEDS: guaiFENesin/CODEINE 5 ML LIQUID PO PRN (16:41)
[2018-12-15] MEDS: traZODone 50 MG TABLET PO PRN (21:52)
[2018-12-15] MEDS: rOPINIRole 0.25 MG TABLET PO SCH (21:53)
[2018-12-16] MEDS: ALBUTEROL/IPRATROPIUM 3 ML NEB RESP TX SCH ×4 (00:53→19:15)
[2018-12-16] MEDS: MEROPENEM 1,000 MG in SYRINGE 1 EACH IV SCH ×3 (06:10→22:20)
[2018-12-16 06:55] LABS: Basophils % 0.2 % (0.0-0.8); Immature Granulocytes % 1.2 %; Lymphocytes # 1.9 10*3/uL (1.4-4.0); Lymphocytes % 11.5 % (21.3-54.2); Mean Corpuscular HGB Conc 31.4 GM/DL (32-36); Mean Corpuscular Volume 94.9 FL (87-102); Monocytes % 4.7 % (1.7-12.7); Neutrophils % 82.4 % (38.7-73.9); Platelet Count 367 T/CUMM (130-400); Red Blood Count 3.69 MC/CUMM (3.8-5.5); Red Cell Distribution Width 14.3 % (9.3-17.3); White Blood Count 16.8 T/CUMM (4-12)
[2018-12-16] MEDS: DORNASE ALFA 2.5 MG/2.5 ML VIAL RESP TX SCH ×2 (07:22→19:29)
[2018-12-16 07:24] LABS: Calcium 9.4 MG/DL (8.5-10.1); Osmolality,Calculated 297.8 MOS/KG (273-304)
[2018-12-16] MEDS: CETIRIZINE 10 MG TABLET PO SCH (09:00)
[2018-12-16] MEDS: DOCUSATE SODIUM 100 MG CAPSULE PO PRN ×2 (09:00→22:18)
[2018-12-16] MEDS: NYSTATIN 500,000 UNIT/5 ML UDCUP SWISH/SWAL SCH ×2 (09:00→22:19)
[2018-12-16] MEDS: BENZONATATE 100 MG CAPSULE PO SCH ×3 (09:00→22:18)
[2018-12-16] MEDS: MULTIVITAMIN (CENTRUM) TABLET PO SCH (09:01)
[2018-12-16] MEDS: PANTOPRAZOLE 40 MG TABLET PO SCH (09:01)
[2018-12-16] MEDS: GLUCOSAMINE 500 MG TABLET PO SCH ×2 (09:01→22:18)
[2018-12-16] MEDS: FLUCONAZOLE 100 MG TABLET PO SCH (09:02)
[2018-12-16] MEDS: OXYBUTYNIN XL 10 MG TABLET PO SCH (09:02)
[2018-12-16] MEDS: CALCIUM (CARBONATE)/VITAMIN D 500 MG-200 UNIT TABLET PO SCH ×3 (09:02→22:19)
[2018-12-16] MEDS: GABAPENTIN 600 MG TABLET PO SCH ×3 (09:02→22:17)
[2018-12-16] MEDS: MONTELUKAST 10 MG TABLET PO SCH ×2 (09:03→22:19)
[2018-12-16] MEDS: FENOFIBRATE 145 MG TABLET PO SCH (09:03)
[2018-12-16] MEDS: EZETIMIBE 10 MG TABLET PO SCH (09:03)
[2018-12-16] MEDS: DULoxetine 30 MG CAPSULE PO SCH ×2 (09:03→22:18)
[2018-12-16] MEDS: THEOPHYLLINE ER 300 MG TABLET PO SCH ×2 (09:04→16:55)
[2018-12-16] MEDS: LACTOBACILLUS ACIDOPHILUS/BULGARICUS CAPLET PO SCH (09:04)
[2018-12-16] MEDS: COENZYME Q10 100 MG CAPSULE PO SCH (09:04)
[2018-12-16] MEDS: CLOTRIMAZOLE 1% CREAM 15 GM TUBE TOP SCH ×2 (09:05→20:30)
[2018-12-16] MEDS: buPROPion SR 150 MG TABLET PO SCH (09:05)
[2018-12-16] MEDS: DICLOFENAC 1% GEL 100 GM TUBE TOP SCH ×4 (09:05→22:20)
[2018-12-16] MEDS: methylPREDNISolone SOD SUC 40 MG/1 ML VIAL IV SCH ×2 (09:38→22:21)
[2018-12-16] MEDS: diphenhydrAMINE CAP 50 MG CAPSULE PO PRN ×2 (13:20→22:18)
[2018-12-16] MEDS: ENOXAPARIN 40 MG/0.4 ML SYRINGE SUBCUT SCH (14:07)
[2018-12-16] MEDS: rOPINIRole 0.25 MG TABLET PO SCH (22:18)
[2018-12-16] MEDS: traZODone 50 MG TABLET PO PRN (22:19)
[2018-12-17] MEDS: ALBUTEROL/IPRATROPIUM 3 ML NEB RESP TX SCH ×4 (00:55→19:40)
[2018-12-17 06:11] LABS: Basophils % 0.1 % (0.0-0.8); Hemoglobin 10.3 GM/DL (12.0-16.0); Immature Granulocytes % 1.7 %; Immature Granulocytes Absolute 0.26 #; Lymphocytes # 1.5 10*3/uL (1.4-4.0); Lymphocytes % 9.8 % (21.3-54.2); Mean Corpuscular HGB Conc 31.2 GM/DL (32-36); Mean Corpuscular Volume 95.1 FL (87-102); Mean Platelet Volume 10.4 FL (9.6-12.0); Monocytes % 4.4 % (1.7-12.7); Platelet Count 331 T/CUMM (130-400); Red Blood Count 3.47 MC/CUMM (3.8-5.5); Red Cell Distribution Width 14.6 % (9.3-17.3); White Blood Count 15.5 T/CUMM (4-12)
[2018-12-17 06:25] LABS: Albumin 3.3 G/DL (3.4-5.0); Bilirubin,Total 0.4 MG/DL (0.2-1.0); Calcium 9.4 MG/DL (8.5-10.1); Total Protein 6.4 G/DL (6.4-8.3)
[2018-12-17] MEDS: MEROPENEM 1,000 MG in SYRINGE 1 EACH IV SCH ×3 (07:02→21:02)
[2018-12-17] MEDS: DORNASE ALFA 2.5 MG/2.5 ML VIAL RESP TX SCH ×2 (07:36→19:40)
[2018-12-17] MEDS: FLUCONAZOLE 100 MG TABLET PO SCH (09:08)
[2018-12-17] MEDS: CALCIUM (CARBONATE)/VITAMIN D 500 MG-200 UNIT TABLET PO SCH ×2 (09:08→20:54)
[2018-12-17] MEDS: THEOPHYLLINE ER 300 MG TABLET PO SCH ×2 (09:08→17:42)
[2018-12-17] MEDS: GLUCOSAMINE 500 MG TABLET PO SCH ×2 (09:09→20:56)
[2018-12-17] MEDS: MONTELUKAST 10 MG TABLET PO SCH ×2 (09:09→20:56)
[2018-12-17] MEDS: EZETIMIBE 10 MG TABLET PO SCH (09:09)
[2018-12-17] MEDS: LACTOBACILLUS ACIDOPHILUS/BULGARICUS CAPLET PO SCH (09:10)
[2018-12-17] MEDS: BENZONATATE 100 MG CAPSULE PO SCH ×3 (09:10→20:56)
[2018-12-17] MEDS: OXYBUTYNIN XL 10 MG TABLET PO SCH (09:10)
[2018-12-17] MEDS: PANTOPRAZOLE 40 MG TABLET PO SCH (09:10)
[2018-12-17] MEDS: buPROPion SR 150 MG TABLET PO SCH (09:10)
[2018-12-17] MEDS: GABAPENTIN 600 MG TABLET PO SCH ×3 (09:11→20:55)
[2018-12-17] MEDS: COENZYME Q10 100 MG CAPSULE PO SCH (09:11)
[2018-12-17] MEDS: MULTIVITAMIN (CENTRUM) TABLET PO SCH (09:11)
[2018-12-17] MEDS: NYSTATIN 500,000 UNIT/5 ML UDCUP SWISH/SWAL SCH ×2 (09:11→20:54)
[2018-12-17] MEDS: CETIRIZINE 10 MG TABLET PO SCH (09:11)
[2018-12-17] MEDS: DULoxetine 30 MG CAPSULE PO SCH ×2 (09:11→20:56)
[2018-12-17] MEDS: CLOTRIMAZOLE 1% CREAM 15 GM TUBE TOP SCH ×2 (09:16→21:13)
[2018-12-17] MEDS: DICLOFENAC 1% GEL 100 GM TUBE TOP SCH ×5 (09:17→21:03)
[2018-12-17] MEDS: methylPREDNISolone SOD SUC 40 MG/1 ML VIAL IV SCH ×2 (09:27→20:57)
[2018-12-17] MEDS: FENOFIBRATE 145 MG TABLET PO SCH (09:36)
[2018-12-17] MEDS: ENOXAPARIN 40 MG/0.4 ML SYRINGE SUBCUT SCH (15:12)
[2018-12-17] MEDS: DOCUSATE SODIUM 100 MG CAPSULE PO PRN (20:55)
[2018-12-17] MEDS: diphenhydrAMINE CAP 50 MG CAPSULE PO PRN (20:55)
[2018-12-17] MEDS: rOPINIRole 0.25 MG TABLET PO SCH (20:55)
[2018-12-17] MEDS: traZODone 50 MG TABLET PO PRN (20:56)
[2018-12-18] MEDS: ALBUTEROL/IPRATROPIUM 3 ML NEB RESP TX SCH ×4 (00:21→19:49)
[2018-12-18] MEDS: MEROPENEM 1,000 MG in SYRINGE 1 EACH IV SCH ×3 (06:15→21:04)
[2018-12-18] MEDS: DORNASE ALFA 2.5 MG/2.5 ML VIAL RESP TX SCH ×2 (08:10→19:49)
[2018-12-18] MEDS: NYSTATIN 500,000 UNIT/5 ML UDCUP SWISH/SWAL SCH ×2 (08:50→21:02)
[2018-12-18] MEDS: PANTOPRAZOLE 40 MG TABLET PO SCH (08:51)
[2018-12-18] MEDS: CETIRIZINE 10 MG TABLET PO SCH (08:51)
[2018-12-18] MEDS: BENZONATATE 100 MG CAPSULE PO SCH ×3 (08:52→21:00)
[2018-12-18] MEDS: methylPREDNISolone SOD SUC 40 MG/1 ML VIAL IV SCH (08:52)
[2018-12-18] MEDS: MULTIVITAMIN (CENTRUM) TABLET PO SCH (08:52)
[2018-12-18] MEDS: CALCIUM (CARBONATE)/VITAMIN D 500 MG-200 UNIT TABLET PO SCH ×2 (08:53→21:01)
[2018-12-18] MEDS: FENOFIBRATE 145 MG TABLET PO SCH (08:53)
[2018-12-18] MEDS: THEOPHYLLINE ER 300 MG TABLET PO SCH ×2 (08:53→17:43)
[2018-12-18] MEDS: GLUCOSAMINE 500 MG TABLET PO SCH ×2 (08:53→21:01)
[2018-12-18] MEDS: FLUCONAZOLE 100 MG TABLET PO SCH (08:54)
[2018-12-18] MEDS: OXYBUTYNIN XL 10 MG TABLET PO SCH (08:54)
[2018-12-18] MEDS: buPROPion SR 150 MG TABLET PO SCH (08:54)
[2018-12-18] MEDS: LACTOBACILLUS ACIDOPHILUS/BULGARICUS CAPLET PO SCH (08:54)
[2018-12-18] MEDS: COENZYME Q10 100 MG CAPSULE PO SCH (08:54)
[2018-12-18] MEDS: EZETIMIBE 10 MG TABLET PO SCH (08:54)
[2018-12-18] MEDS: GABAPENTIN 600 MG TABLET PO SCH ×3 (08:54→21:00)
[2018-12-18] MEDS: MONTELUKAST 10 MG TABLET PO SCH ×2 (08:54→21:01)
[2018-12-18] MEDS: DULoxetine 30 MG CAPSULE PO SCH ×2 (08:54→21:00)
[2018-12-18] MEDS: DICLOFENAC 1% GEL 100 GM TUBE TOP SCH ×4 (08:55→21:02)
[2018-12-18] MEDS: CLOTRIMAZOLE 1% CREAM 15 GM TUBE TOP SCH ×2 (08:55→21:02)
[2018-12-18] MEDS: MUPIROCIN 2% OINT 22 GM TUBE TOP PRN (08:55)
[2018-12-18] MEDS: ENOXAPARIN 40 MG/0.4 ML SYRINGE SUBCUT SCH (14:24)
[2018-12-18] MEDS: rOPINIRole 0.25 MG TABLET PO SCH (21:00)
[2018-12-18] MEDS: traZODone 50 MG TABLET PO PRN (21:00)
[2018-12-18] MEDS: diphenhydrAMINE CAP 50 MG CAPSULE PO PRN (21:01)
[2018-12-18] MEDS: DOCUSATE SODIUM 100 MG CAPSULE PO PRN (21:01)
[2018-12-19] MEDS: ALBUTEROL/IPRATROPIUM 3 ML NEB RESP TX SCH ×3 (02:20→13:55)
[2018-12-19 06:06] LABS: Basophils # 0.1 10*3/uL (0.0-0.2); Basophils % 0.3 % (0.0-0.8); Eosinophils # 0.1 10*3/uL (0.0-0.87); Eosinophils % 0.5 % (0.00-10.9); Hematocrit 33.1 VOL% (35.7-47.0); Hemoglobin 10.4 GM/DL (12.0-16.0); Immature Granulocytes % 1.9 %; Lymphocytes # 5.3 10*3/uL (1.4-4.0); Lymphocytes % 33.2 % (21.3-54.2); Mean Corpuscular HGB Conc 31.4 GM/DL (32-36); Mean Corpuscular Volume 95.7 FL (87-102); Mean Platelet Volume 9.6 FL (9.6-12.0); Neutrophils % 57.1 % (38.7-73.9); Platelet Count 322 T/CUMM (130-400); Red Blood Count 3.46 MC/CUMM (3.8-5.5); Red Cell Distribution Width 14.6 % (9.3-17.3); White Blood Count 15.9 T/CUMM (4-12)
[2018-12-19] MEDS: MEROPENEM 1,000 MG in SYRINGE 1 EACH IV SCH ×2 (06:09→14:10)
[2018-12-19 06:22] LABS: Calcium 9.8 MG/DL (8.5-10.1); Osmolality,Calculated 294.6 MOS/KG (273-304)
[2018-12-19] MEDS: DORNASE ALFA 2.5 MG/2.5 ML VIAL RESP TX SCH (07:34)
[2018-12-19] MEDS: MULTIVITAMIN (CENTRUM) TABLET PO SCH (09:27)
[2018-12-19] MEDS: methylPREDNISolone SOD SUC 40 MG/1 ML VIAL IV SCH (09:27)
[2018-12-19] MEDS: COENZYME Q10 100 MG CAPSULE PO SCH (09:27)
[2018-12-19] MEDS: GLUCOSAMINE 500 MG TABLET PO SCH (09:27)
[2018-12-19] MEDS: BENZONATATE 100 MG CAPSULE PO SCH ×2 (09:28→16:07)
[2018-12-19] MEDS: FENOFIBRATE 145 MG TABLET PO SCH (09:28)
[2018-12-19] MEDS: EZETIMIBE 10 MG TABLET PO SCH (09:28)
[2018-12-19] MEDS: CALCIUM (CARBONATE)/VITAMIN D 500 MG-200 UNIT TABLET PO SCH (09:28)
[2018-12-19] MEDS: MONTELUKAST 10 MG TABLET PO SCH (09:28)
[2018-12-19] MEDS: PANTOPRAZOLE 40 MG TABLET PO SCH (09:28)
[2018-12-19] MEDS: LACTOBACILLUS ACIDOPHILUS/BULGARICUS CAPLET PO SCH (09:28)
[2018-12-19] MEDS: buPROPion SR 150 MG TABLET PO SCH (09:28)
[2018-12-19] MEDS: GABAPENTIN 600 MG TABLET PO SCH ×2 (09:28→16:07)
[2018-12-19] MEDS: FLUCONAZOLE 100 MG TABLET PO SCH (09:28)
[2018-12-19] MEDS: NYSTATIN 500,000 UNIT/5 ML UDCUP SWISH/SWAL SCH (09:29)
[2018-12-19] MEDS: CLOTRIMAZOLE 1% CREAM 15 GM TUBE TOP SCH (09:29)
[2018-12-19] MEDS: OXYBUTYNIN XL 10 MG TABLET PO SCH (09:29)
[2018-12-19] MEDS: CETIRIZINE 10 MG TABLET PO SCH (09:29)
[2018-12-19] MEDS: DULoxetine 30 MG CAPSULE PO SCH (09:29)
[2018-12-19] MEDS: DICLOFENAC 1% GEL 100 GM TUBE TOP SCH ×2 (09:29→12:09)
[2018-12-19] MEDS: THEOPHYLLINE ER 300 MG TABLET PO SCH (09:29)
[2018-12-19 12:06] VITALS: BP 145/58
[2018-12-19] MEDS: diphenhydrAMINE CAP 50 MG CAPSULE PO PRN (12:42)
[2018-12-19] MEDS: ENOXAPARIN 40 MG/0.4 ML SYRINGE SUBCUT SCH (14:08)
== END 2018-12-19 17:06 | disposition home or self-care (01) | DRG 167 ==
LOC: N.EDINP → N.5E → SUATTDRO 10:32 → N.5E 11:33 → SUATTDRO 12-08 10:09
PROVIDERS: ADMIT Internal Medicine; ATTEND Internal Medicine